=== PATIENT | male | born 1990 | race Caucasian/White ===

== ENCOUNTER 2019-01-17 21:42 | Emergency (ER) | payer MEDICAID ==
[~2019-01-17] VITALS: Ht 175.3 cm; Wt 61.2 kg
[2019-01-17 22:03] VITALS: BP 173/94
[2019-01-17 22:15] LABS: Basophils # (auto) 0.2 uL; Basophils % (auto) 1.2 % (0.0-2.0); Eosinophils # (auto) 0.5 uL; Eosinophils % (auto) 3.8 % (0.0-7.0); Hematocrit 40.4 % (41.0-53.0); Hemoglobin 13.6 g/dL (13.5-17.5); Lymphocytes # (auto) 2.6 uL; Lymphocytes % (auto) 20.8 % (10.0-50.0); Mean Corpuscular Hemoglobin 33.1 pg (28.0-32.0); Mean Corpuscular Hgb Conc. 33.6 g/dL (32.0-36.0); Mean Corpuscular Volume 98.5 fL (80.0-100.0); Monocytes # (auto) 0.8 uL; Monocytes % (auto) 6.4 % (0.0-12.0); Neutrophils # (auto) 8.5 uL; Neutrophils % (auto) 67.8 % (37.0-80.0); Platelet Count (auto) 395 10^3/uL (140-450); Red Cell Distribution Width 14.3 % (11.8-14.3); White Blood Cell 12.5 10^3/uL (4.4-10.8)
[2019-01-17] MEDS ORDERED: DEXTROSE (50%) 50ML SYRG IV ONE (22:15)
[2019-01-17 22:33] LABS: Albumin 3.9 g/dL (3.4-5.0); BUN/Creatinine Ratio 11.4; Calcium 8.9 mg/dL (8.5-10.1); Potassium 3.3 mmol/L (3.5-5.1)
[2019-01-17 22:36] LABS: Bilirubin, Total 0.2 mg/dL (0.2-1.0); Total Protein 8.1 g/dL (6.4-8.2)
[2019-01-17 23:56] LABS: Urine Bacteria FEW /hpf (None Seen); Urine Blood Negative /uL (Negative); Urine Mucus FEW (None Seen); Urine Specific Gravity 1.012 (1.001-1.035); Urine WBC 1 /hpf (0 - 3)
[2019-01-18] MEDS ORDERED: BENAZEPRIL HCL 10 MG TAB PO ONE (00:15)
[2019-01-18] MEDS ORDERED: DEXTROSE 10% 1,000 ML IV ONE (00:15)
[2019-01-18 00:22] LABS: Alcohol, Urine < 3.0 mg/dL (0-5); Amphetamine Screen, Urine NEGATIVE (NEGATIVE); Barbiturate Scree,Urine NEGATIVE (NEGATIVE); Benzodiazephine Screen, Urine NEGATIVE (NEGATIVE); Cannabinoid Screen, Urine POSITIVE (NEGATIVE); Cocaine Screen, Urine NEGATIVE (NEGATIVE); Opiate Scree,Urine NEGATIVE (NEGATIVE); Phencyclidine Screen, Urine NEGATIVE (NEGATIVE)
== END 2019-01-18 00:33 | disposition left against medical advice (07) ==
LOC: ER 21:46
DX: E11.649 Type 2 diabetes mellitus with hypoglycemia without coma (principal); I10 Essential (primary) hypertension; F17.210 Nicotine dependence, cigarettes, uncomplicated; F12.90 Cannabis use, unspecified, uncomplicated; Z53.29 Procedure and treatment not carried out because of patient's decision for other reasons
CPT/HCPCS: 36415; 70450; 80053; 80307; 81001; 82962; 85025; 96374; 99284; J7042

== ENCOUNTER 2022-08-16 21:07 | Emergency (ER) | payer MEDICAID ==
[~2022-08-16] VITALS: Ht 175.3 cm; Wt 56.2 kg
[2022-08-17] MEDS ORDERED: IBUP800T27 PO (00:06)
[2022-08-17 01:31] VITALS: BP 139/86
== END 2022-08-17 05:41 | disposition home or self-care (01) ==
LOC: ER 21:07
DX: G43.909 Migraine, unspecified, not intractable, without status migrainosus (principal); E11.9 Type 2 diabetes mellitus without complications; I10 Essential (primary) hypertension; F17.210 Nicotine dependence, cigarettes, uncomplicated; V69.49XA Driver of heavy transport vehicle injured in collision with other motor vehicles in traffic accident, initial encounter; Y93.I9 Activity, other involving external motion; Y92.89 Other specified places as the place of occurrence of the external cause; Y99.8 Other external cause status
CPT/HCPCS: 70450; 71250; 72125; 74176